=== PATIENT | male | born 1975 | race Caucasian/White ===

== ENCOUNTER 2017-06-18 10:44 | Emergency (ER) | payer BC ==
[~2017-06-18] VITALS: Ht 182.9 cm; Wt 107.1 kg
[~2017-06-18 10:44] MED LIST: AMLODIPINE BESY10 MG PO; LIPITOR5 MG PO; LISINOPRIL2.5 MG PO; LISINOPRIL40 MG PO; PERCOCET 5/31 TABLET PO; TRAMADOL HCL50 MG PO
[2017-06-18 11:30] LABS: HEMATOCRIT 46.5 % (38.0-50.0); MCH 30.1 PG (29.0-34.0); MCHC 34.6 G/DL (30.0-36.0); MCV 87.1 FL (86-99); MEAN PLAT.VOLUME 11.3 uM^3 (9.0-12.4); PLATELET COUNT 145 K/uL (156-360); RBC DIS.WIDTH-CV 12.3 % (11.8-14.6); RBC DIS.WIDTH-SD 39.3 % (39-53); RED BLOOD COUNT 5.34 M/uL (4.00-5.50); WHITE BLOOD COUNT 6.3 K/uL (4.1-10.2)
[2017-06-18 11:38] LABS: CHLORIDE 109 mEq/L (99-109); SODIUM 140 mEq/L (136-147)
[2017-06-18 11:41] LABS: GLUCOSE 122 mg/dL (70-99)
[2017-06-18 11:42] LABS: ANION GAP 11 MEQ/L (2-14); TOTAL BILIRUBIN 0.4 mg/dL (0.0-1.0)
[2017-06-18 11:44] LABS: ALKALINE PHOSPHATASE 69 IU/L (3-129); GFR ESTIMATE (CALCULATED) > 59 mL/min/
[2017-06-18 11:45] LABS: UREA NITROGEN (BUN) 12 mg/dL (9-23)
[2017-06-18 11:48] LABS: LIPASE 26 U/L (1.0-51.0)
[2017-06-18 13:09] LABS: ADD MIUA? NO; BILIRUBIN NEGATIVE; BLOOD NEGATIVE; COLOR YELLOW ((YELLOW)); GLUCOSE (STRIP) NEGATIVE; KETONES NEGATIVE; LEUKOCYTES NEGATIVE; NITRITE NEGATIVE; PROTEIN (STRIP) NEGATIVE; SPECIFIC GRAVITY 1.017 (1.000-1.030); UCUL ADDED? NO; UROBILINOGEN 0.2 MG/DL (0.2-1.0)
[2017-06-18] MEDS ORDERED: PERCOCET 5/31 TABLET PO (14:10)
[2017-06-18 14:39] VITALS: BP 147/89
== END 2017-06-18 14:45 | disposition home or self-care (01) ==
LOC: EME 10:44
DX: R10.9 Unspecified abdominal pain (principal); I10 Essential (primary) hypertension; F17.200 Nicotine dependence, unspecified, uncomplicated
CPT/HCPCS: 74176; 80053; 81003; 83690; 85027; 99281; 99284; J2270; J7030

== ENCOUNTER 2017-06-27 19:42 | Inpatient (IN) | payer BC ==
[~2017-06-27] VITALS: Ht 180.3 cm; Wt 98.3 kg
[2017-06-27] MEDS ORDERED: FLUOXETINE HCL20 MG PO (20:15)
[2017-06-27] MEDS ORDERED: TRAZODONE HCL50 MG PO (20:16)
[2017-06-27 20:45] LABS: HEMATOCRIT 46.8 % (38.0-50.0); MCH 30.4 PG (29.0-34.0); MCV 86.8 FL (86-99); MEAN PLAT.VOLUME 10.8 uM^3 (9.0-12.4); PLATELET COUNT 146 K/uL (156-360); RBC DIS.WIDTH-SD 38.6 % (39-53); RED BLOOD COUNT 5.39 M/uL (4.00-5.50); WHITE BLOOD COUNT 7.5 K/uL (4.1-10.2)
[2017-06-27 20:48] LABS: CHLORIDE 105 mEq/L (99-109); POTASSIUM 3.4 mEq/L (3.7-5.4); SODIUM 140 mEq/L (136-147)
[2017-06-27 20:50] LABS: GLUCOSE 90 mg/dL (70-99)
[2017-06-27 20:51] LABS: ANION GAP 12 MEQ/L (2-14)
[2017-06-27 20:52] LABS: TOTAL BILIRUBIN 0.4 mg/dL (0.0-1.0)
[2017-06-27 20:53] LABS: ALKALINE PHOSPHATASE 71 IU/L (3-129); SERUM ETHYL ALCOHOL 142 mg/dL
[2017-06-27 20:54] LABS: GFR ESTIMATE (CALCULATED) > 59 mL/min/
[2017-06-27 20:55] LABS: UREA NITROGEN (BUN) 8 mg/dL (9-23)
[2017-06-27 23:07] LABS: ADD MIUA? NO; BILIRUBIN NEGATIVE; BLOOD NEGATIVE; COLOR STRAW ((YELLOW)); GLUCOSE (STRIP) NEGATIVE; KETONES NEGATIVE; LEUKOCYTES NEGATIVE; NITRITE NEGATIVE; PROTEIN (STRIP) NEGATIVE; SPECIFIC GRAVITY 1.004 (1.000-1.030); UROBILINOGEN 0.2 MG/DL (0.2-1.0)
[2017-06-27 23:27] LABS: AMPHETAMINE NEGATIVE (500 ng/mL); BARBITURATES NEGATIVE (200 ng/mL); BENZODIAZEPINES NEGATIVE (150 ng/mL); COCAINE NEGATIVE (150 ng/mL); INTERNAL CONTROLS VALID? YES; METHADONE NEGATIVE (200 ng/mL); METHAMPHETAMINE NEGATIVE (500 ng/mL); OPIATES (MORPHINE) NEGATIVE (100 ng/mL); OXYCODONE NEGATIVE (100 ng/mL); PHENCYCLIDINE NEGATIVE (25 ng/mL); PROPOXYPHENE NEGATIVE (300 ng/mL); THC CANNABINOIDS NEGATIVE (50 ng/mL); TRICYCLIC ANTIDEPRESSANTS NEGATIVE (300 ng/mL)
[2017-06-28 03:22] VITALS: BP 131/87
[2017-06-28] MEDS ORDERED: TYLENOL REGULA325 MG PO (03:28)
[2017-06-28 07:56] VITALS: BP 141/74
[2017-06-28 15:41] VITALS: BP 121/76
[2017-06-29 07:56] VITALS: BP 151/78
[2017-06-29 16:01] VITALS: BP 162/102
[2017-06-29 17:01] VITALS: BP 137/101
[2017-06-30 00:05] VITALS: BP 162/94
[2017-06-30 08:18] VITALS: BP 162/104
[2017-06-30 16:27] VITALS: BP 179/108
[2017-06-30 19:00] VITALS: BP 137/96
[2017-06-30 20:18] VITALS: BP 170/102
[2017-07-01 07:57] VITALS: BP 142/95
[2017-07-01] MEDS ORDERED: NALTREXONE HCL50 MG PO (09:18)
[2017-07-01] MEDS ORDERED: BUPROPION HCL100 M1 PO (09:18)
[2017-07-01] MEDS ORDERED: ZOLPIDEM TARTRAT5 MG PO (09:23)
== END 2017-07-01 11:20 | disposition home or self-care (01) | DRG 881 ==
LOC: EME 19:42 → 1WEST 22:59 → EDOF 22:59 → ENRESERV 06-28 03:12 → 1WEST 06-28 03:13
PROVIDERS: Emergency Medicine
DX: F43.21 Adjustment disorder with depressed mood (principal); R45.851 Suicidal ideations; F33.9 Major depressive disorder, recurrent, unspecified; E78.5 Hyperlipidemia, unspecified; F10.129 Alcohol abuse with intoxication, unspecified; F41.9 Anxiety disorder, unspecified; T43.222A Poisoning by selective serotonin reuptake inhibitors, intentional self-harm, initial encounter; T43.212A Poisoning by selective serotonin and norepinephrine reuptake inhibitors, intentional self-harm, initial encounter; Y90.6 Blood alcohol level of 120-199 mg/100 ml; F17.210 Nicotine dependence, cigarettes, uncomplicated; F51.04 Psychophysiologic insomnia; Z60.2 Problems related to living alone; Z88.6 Allergy status to analgesic agent; Z90.49 Acquired absence of other specified parts of digestive tract; Y92.009 Unspecified place in unspecified non-institutional (private) residence as the place of occurrence of the external cause; Z81.8 Family history of other mental and behavioral disorders; Z82.49 Family history of ischemic heart disease and other diseases of the circulatory system
CPT/HCPCS: 80053; 81003; 85027; 90837; 99281; 99285; G0480; J7030